=== PATIENT | male | born 1960 | race Asian ===

== ENCOUNTER 2023-08-13 17:25 | Emergency (ER) | payer OTHER ==
[~2023-08-13] VITALS: Ht 167.6 cm; Wt 63.5 kg
[2023-08-13 17:38] VITALS: BP_SYST 123; PULSE 86; RESP 18; TEMP 98.3; O2SAT 98
[2023-08-13] MEDS: IBUPROFEN 800 MG TABLET PO ONE (17:54)
[2023-08-13] MEDS ORDERED: HYDR-3917 PO (18:12)
[2023-08-13] MEDS ORDERED: IBUP-1971 PO (18:12)
[2023-08-13 19:03] VITALS: BP_SYST 123; PULSE 86; RESP 18; TEMP 98.3; O2SAT 98
== END 2023-08-13 19:00 | disposition home or self-care (01) ==
LOC: SED 17:25
DX: S52.121A Displaced fracture of head of right radius, initial encounter for closed fracture (principal); Z79.899 Other long term (current) drug therapy; W01.0XXA Fall on same level from slipping, tripping and stumbling without subsequent striking against object, initial encounter; Y93.89 Activity, other specified; Y92.89 Other specified places as the place of occurrence of the external cause; Y99.8 Other external cause status
CPT/HCPCS: 99283